=== PATIENT | male | born 1965 | race Caucasian/White ===

== ENCOUNTER 2022-09-10 13:01 | Inpatient (IN) | payer BC, SELFPAY ==
[2022-09-10] VITALS (8 sets, daily range): BP systolic 122–154; BP diastolic 75–92; PULSE 65–107; RESP 16–27; TEMP 36.7–36.8; O2SAT 98–100; BMI 25.4
--- NOTE | ~2022-09-10 | CT_ITS ---
CT of the Abdomen and Pelvis: Indication: Malignancy evaluation, cavitary lung disease Technique: 2.5 mm axial scans were obtained through the abdomen and pelvis following intravenous adm inistration of 100 cc of Omnipaque 350. Dose reduction technique was used on this scan by utilizing a utomated exposure control and iterative reconstruction technique. The dose-length product (DLP) was 6 81.60 mGy-cm. Findings: Scans through the lung bases there is a possible focal tree-in-bud opacities in the lingul a. The liver, spleen, pancreas, gallbladder, adrenals and kidneys are within normal limits. No evidence of aortic aneurysm. No lymphadenopathy. There are atherosclerotic calcifications of the aorta. No bowel obstruction or bowel wall thickening. There is no evidence to suggest acute appendicitis. Th ere is focal inflammatory change and small bubbles of gas in the subcutaneous soft tissues in the lef t groin region. Images through the pelvis were performed. Urinary bladder unremarkable. Prostate gland and seminal ve sicles are unremarkable. No ascites. Impression: No evidence for malignancy or metastatic disease. Possible focal tree-in-bud opacities in lingula, suggestive of small airways infectious process. Focal inflammatory change and soft tissue gas in the subcutaneous soft tissues, groin region. Correla te for recent procedure or injection, or possibly other trauma. Reviewed, dictated and finalized at location M. LSTERY AUTO TRIMMER Impression: No evidence for malignancy or metastatic disease. Possible focal tree-in-bud opacities in lingula, suggestive of small airways in fectious process. Focal inflammatory change and soft tissue gas in the subcutaneous soft tissues, groin region. Correlate for recent procedure or injection, or possibly other t rauma.
--- NOTE | ~2022-09-10 | XR_ITS ---
XR abdomen/kub 1V DATE: 09/12/2022 10:11 INDICATION: Check for barium prior to scheduled CT examination TECHNIQUE: Portable supine AP views COMPARISON: None FINDINGS: There is barium throughout the rectum and colon. Scattered diverticula of the sigmoid and d escending colon. No bowel obstruction is evident. Associated as are intact. No visceromegaly is detected. Degenerative changes of the thoracic and lumbar spine and particularly left hip. IMPRESSION: Barium within the rectum and colon Reviewed, dictated and finalized at Location A. Reviewed, dictated and finalized at location L. UTER APPLICATIONS ENGINEER
--- NOTE | ~2022-09-10 | XR_ITS ---
Clinical Indication: Cavitary pneumonia PA and lateral views of the chest: Comparison: 09/10/2022 Findings: Cavitary lesion with surrounding consolidation left upper lobe is similar to prior exam. Ri ght lung remains clear. Cardiomediastinal silhouette is within normal limits. Bones and soft tissues are unremarkable. Impression: Stable cavitary lesion with surrounding consolidation left upper lobe. Reviewed, dictated and finalized at [facility]. ING AND RESIDENCE LIFE DIRECTOR Impression: Stable cavitary lesion with surrounding consolidation left upper lobe.
--- NOTE | ~2022-09-10 | CT_ITS ---
EXAMINATION: CT diagnostic chest w con DATE: 09/10/2022 14:47 INDICATION: Necrotizing pneumonia with abscess formation TECHNIQUE: Transaxial computed tomographic images of the chest were obtained after the administration of 75 cc of Omnipaque 350 intravenous contrast. The dose-length product (DLP) was 315.10 mGy-cm. Ite rative reconstruction was used. COMPARISON: None FINDINGS: There are multiple thick-walled cavitary nodules throughout the lungs. There is a 6.1 x 4.9 cm thick-walled cavitary mass of the left upper lobe. There are multiple small ill-defined nodules w ithout cavitation throughout the lungs, predominantly in the left upper lobe. There is no pleural eff usion. The heart size is normal. The liver is diffusely low in attenuation when compared with the spl een, consistent with hepatic steatosis. There is mild thoracic spondylosis. IMPRESSION: 1. Findings consistent with multifocal pneumonia with multiple solid and cavitary nodules in the lung s as well as a thick-walled cavitary mass of the left upper lobe. Reviewed, dictated and finalized at location F. MS CONFIGURATION ANALYST IMPRESSION: 1. Findings consistent with multifocal pneumonia with multiple solid and cavita ry nodules in the lungs as well as a thick-walled cavitary mass of the left upp er lobe.
--- NOTE | ~2022-09-10 | XR_ITS ---
EXAM: XR foot LT min 3V DATE: 09/13/2022 17:33 HISTORY: trauma 4th metatarsal, pain . COMPARISON: None available. FINDINGS: Normal mineralization. No fracture or dislocation. No lytic or blastic lesion. Mild scatte red degenerative change. Os cuboidium. Os navicularis. Plantar enthesopathy. Prominent os trigonum. N o erosion or periosteal change. Soft tissues within normal limits. IMPRESSION: No acute osseous finding in the left foot. Reviewed, dictated and finalized at location K. RSION METAL CLEANER
--- NOTE | ~2022-09-10 | CT_ITS ---
CT Scan of the Chest without Contrast: Clinical Indication: Cavitary lung disease Technique: Contiguous sections were acquired throughout the chest without intravenous contrast. Dose reduction technique was used on this scan by utilizing automated exposure control and iterative recon struction technique. The dose-length product (DLP) was 260.28 mGy-cm. COMPARISON: 09/10/2022 Findings: There is no evidence of any significant mediastinal, hilar or axillary lymphadenopathy. The mediastin al soft tissues appear normal. There is no evidence of pleural or pericardial effusion. Thick-walled cavitary lesion in the left upper lobe is present, extending towards left hilum, measuri ng up to approximately 6.5 cm in diameter, essentially unchanged from prior exam. Patchy surrounding consolidation and small irregular nodule opacities in the left upper lobe are also essentially unchan ged from prior exam. There are several much smaller cavitary lesions in the left lower lobe, measurin g up to 1.1 cm in maximum diameter, again with small irregular tree-in-bud opacities other nodular op acities in this region. Right lung remains essentially clear. Images through the upper abdomen reveal no abnormalities. Impression: Overall, no significant change from recent prior exam. Stable dominant thick-walled, cavitary lesion in the left upper lobe, with numerous additional much smaller irregular nodules and cavitary lesions in the left upper lobe and left lower lobe, as detailed above. Findings suggest infectious process. N eoplastic/metastatic disease is not excluded. Reviewed, dictated and finalized at location . NESS INTELLIGENCE ENGINEER Impression: Overall, no significant change from recent prior exam. Stable dominant thick-wa lled, cavitary lesion in the left upper lobe, with numerous additional much sma ller irregular nodules and cavitary lesions in the left upper lobe and left low er lobe, as detailed above. Findings suggest infectious process. Neoplastic/met astatic disease is not excluded.
--- NOTE | ~2022-09-10 | XR_ITS ---
MODIFIED ESOPHAGRAM HISTORY: Cavitary pneumonia with complaints of liquid aspiration TECHNIQUE: Modified barium esophagram was performed on 09/11/2022. I administered fluoroscopy and perfo rmed the exam with speech pathologist. Patient was seated for lateral fluoroscopic imaging for inges tion of thin liquids, pudding, solids and quantified amounts, followed by thin liquids in uncontrolle d amounts. This was recorded on tape. A single fluoroscopic spot image was also recorded. The DAP for this procedure was 0.715 Gycm2. The amount of fluoroscopy time used during this procedure was 0.9 mi nutes. FINDINGS: Oral stage: Adequate function. Pharyngeal stage: Adequate function. Cervical/esophageal stage: Adequate function. IMPRESSION: Patient tolerated regular consistency oral feedings in the upright position. Please jude elate with speech pathologist findings and specific feeding recommendations. Reviewed, dictated and finalized at location A. GRATION SPECIALIST IMPRESSION: Patient tolerated regular consistency oral feedings in the upright position. Please correlate with speech pathologist findings and specific feedi ng recommendations.
--- NOTE | ~2022-09-10 | XR_ITS ---
EXAMINATION: XR abdomen/kub 1V DATE: 09/13/2022 08:18 INDICATION: Assess residual enteric barium prior to planned CT. TECHNIQUE: A supine view of the abdomen was obtained. COMPARISON: 09/12/2022 FINDINGS: There is been some decrease in the amount of barium in the proximal colon. There is still significant amount of barium in the distal transverse, descending and sigmoid colon. No dilated bowel to suggest obstruction. IMPRESSION: 1. Interval decrease in a still relatively significant amount of residual barium in the mid to distal colon. Reviewed, dictated and finalized at location A. LED LABORER IMPRESSION: 1. Interval decrease in a still relatively significant amount of residual bariu m in the mid to distal colon.
--- NOTE | ~2022-09-10 | XR_ITS ---
EXAMINATION: XR chest 2V DATE: 09/10/2022 13:57 INDICATION: Left chest pain. TECHNIQUE: Frontal and lateral views of the chest were obtained. COMPARISON: None. FINDINGS: There are airspace opacities in left upper lobe with central lucency, consistent with necro tizing pneumonia. No pleural effusion or pneumothorax. The heart size is normal. IMPRESSION: 1. Necrotizing pneumonia in left upper lobe. Follow-up radiographs are recommended to confirm resolut ion and exclude malignancy. Reviewed, dictated and finalized at location A. VIORAL THERAPY COORDINATOR IMPRESSION: 1. Necrotizing pneumonia in left upper lobe. Follow-up radiographs are recommen ded to confirm resolution and exclude malignancy.
--- NOTE | 2022-09-10 13:01 | ECG_ITS ---
Measurements Intervals [place] Rate: 87 P: 72 ND: 175 QRS: -19 QRSD: 112 T: 69 QT: 351 QTc: 423 Interpretive Statements SINUS RHYTHM POSSIBLE LEFT ATRIAL ENLARGEMENT INCOMPLETE RIGHT BUNDLE BRANCH BLOCK MINIMAL Q WAVES- HIGH LATERAL LEADS BORDERLINE ECG NO PREVIOUS ECG AVAILABLE FOR COMPARISON Electronically Signed On 09-10-2022 14:36:02 SURVEYOR MINE by Julian Hurley D.O.
--- NOTE | 2022-09-10 13:02 | ED.CHESTPAIN ---
HPI - Chest Pain General Chief Complaint: Chest Pain Stated Complaint: lateral left chest pain Time Seen by Provider: 09/10/22 13:02 Source: patient and EMS Mode of arrival: EMS Limitations: no limitations History of Present Illness HPI narrative: Patient is 57 years old white male presented to the ED by ambulance from home complaining of sudden onset of severe cramps at the left chest started while sitting relaxing. 10 out of 10, associated with dizziness and feeling like going to blackout. Worse with deep breathing and better with shallow breath. Patient received 4 tablets of aspirin prior to arrival. Currently 1 out of 10. The symptoms started roughly 1 hour ago. Patient reports history of intermittent cramps in the ribs, hands, legs for years, today the rib cramps lasted longer. currently on magnesium supplement. He denies any fever, chills, nausea, vomiting, shortness of breath or back pain. History of diabetes, hypertension, hyperlipidemia. Patient smokes marijuana, denies tobacco or alcohol use. Patient reported carrying a small box this morning 5-hour prior to the beginning of his symptoms. Related Data Allergies Allergy/AdvReac Type Severity Reaction Status Date / Time Sulfa (Sulfonamide Allergy Swelling Verified 09/10/22 13:03 Antibiotics) Review of Systems Review of Systems: All systems reviewed & are unremarkable except as noted in HPI and below Exam Narrative: General appearance: Well-developed, well-nourished Skin: Normal color Head: Normocephalic, nontraumatic Eyes: Clear conjunctiva ENT: Oropharynx normal, ears normal, nose normal Neck: Supple, nontender Chest and respiratory: Airway patent, no respiratory distress, no accessory muscle use, slight tenderness at the left chest mid axillary line, no bruises, no swelling or rash. Heart: Regular rate/rhythm Abdomen: Soft, nontender, no organomegaly, quiet bowel sounds Vascular: Normal peripheral pulses, normal capillary refill. Musculoskeletal: Normal range of motion, nontender back Neurologic: Alert and oriented ?3, TRANSFORMATION COACH is normal as tested, no gross motor deficit Course Consultations Consultation #1: DR VALENCIA, Was able to look at the EKG through text message and agreed that the patient does not have STEMI. Date: 09/10/22 Time: 13:29 Vital Signs Vital signs: Vital Signs Temperature 36.7 C 09/10/22 12:55 Pulse Rate 87 09/10/22 12:55 Respiratory Rate 16 09/10/22 12:55 Blood Pressure 154/84 H 09/10/22 12:55 Pulse Oximetry 100 09/10/22 12:55 Oxygen Delivery Room Air 09/10/22 12:55 Temperature 36.7 C 09/10/22 12:55 Pulse Rate 87 09/10/22 12:55 Respiratory Rate 16 09/10/22 12:55 Blood Pressure 154/84 H 09/10/22 12:55 Pulse Oximetry 100 09/10/22 12:55 Oxygen Delivery Room Air 09/10/22 12:55 Discharge Plan Discharge Follow-up/Referrals: Frank Camilo MD [Physician] - Quality HEART score for chest pain patients History: slightly suspicious ECG: non specific repolarization disturbance/LBTB/PM Age: > 45 and < 65 years Risk factors: > or = to 3 risk factors of atherosclerotic disease Troponin: < or = to 1x normal limit Heart score: 4
[2022-09-10] MEDS: KETOROLAC 30 MG/ML VIAL (*BKC) IV PUSH (13:41)
[2022-09-10 14:06] LABS: Basophils Percent Auto 0.1 % (0.2-1.2); Hematocrit 41.7 % (42.0-52.0); Hemoglobin 14.1 g/dL (14.0-18.0); Immature Granulocyte Absolute 0.04 K/mm3 (0.00-0.031); Immature Granulocyte Percent A 0.3 % (0-0.5); Lymphocytes Absolute Auto 1.66 K/mm3 (0.9-3.2); Lymphocytes Percent Auto 14.3 % (18.3-44.2); Mean Corpuscular HGB Conc 33.8 g/dl (32-36); Mean Corpuscular Hemoglobin 31.4 pg (26-34); Mean Corpuscular Volume 92.9 fl (80-100); Monocytes Absolute Auto 1.5 K/mm3 (0.1-0.6); Monocytes Percent Auto 12.9 % (2.6-8.5); Neutrophils Absolute Auto 8.4 K/mm3 (1.3-6.7); Neutrophils Percent Auto 72.4 % (45.5-73.1); Platelet Count Result 319 k/mm3 (150-375); Red Blood Count 4.49 M/mm3 (4.6-6.20); Red Cell Distribution Width 12.2 % (11.5-14.5); White Blood Count 11.6 K/mm3 (4.5-10.0)
[2022-09-10 14:17] LABS: Alanine Aminotransferase 21 U/L (6-50); Alkaline Phosphatase 89 U/L (38-126); Anion Gap 10 mmol/L (8-16); Aspartate Amino Transferase 25 U/L (17-59); Bilirubin,Total 0.5 mg/dL (0.2-1.3); Blood Urea Nitrogen 11 mg/dL (9-20); Calcium 8.9 mg/dL (8.4-10.2); Carbon Dioxide 24 mmol/L (22-30); Chloride 97 mmol/L (98-107); Estimated CRCL calculation 161 ml/min; Estimated Glomerular Filt Rate > 60; Glucose 357 mg/dL (65-110); INR 1.2; Lipase 25 U/L (23-300); Partial Thromboplastin Time 27.8 SECONDS (22.3-36.8); Potassium 4.2 mmol/L (3.4-5.0); Prothrombin Time 14.7 Seconds (11.1-14.7); Sodium 131 mmol/L (137-145)
--- NOTE | 2022-09-10 14:19 | ECG_ITS ---
Measurements Intervals [place] Rate: 87 P: 72 RI: 175 QRS: -19 QRSD: 112 T: 69 QT: 351 QTc: 423 Interpretive Statements SINUS RHYTHM POSSIBLE LEFT ATRIAL ENLARGEMENT INCOMPLETE RIGHT BUNDLE BRANCH BLOCK BORDERLINE ECG NO PREVIOUS ECG AVAILABLE FOR COMPARISON Electronically Signed On 09-11-2022 9:57:55 HALL CLERK by Julian Hurley D.O.
[2022-09-10 14:21] LABS: CRP 2.2 mg/dL (<1.0); Magnesium 1.9 mg/dL (1.6-2.3)
[2022-09-10 14:29] LABS: Troponin I < 0.012 ng/mL (0.000-0.034)
[2022-09-10 14:53] LABS: Erythrocyte Sedimentation Rate 49 mm/hr (0-20)
[2022-09-10 15:28] LABS: Lactic Acid Reflex 1.7 mmol/L (0.7-2.0)
[2022-09-10 15:55] LABS: SARS-CoV-2 RNA PCR Negative
--- NOTE | 2022-09-10 16:15 | PM.IMHP ---
H&P: HPI History of Present Illness Date/Time: 09/10/22 16:15 Chief Complaint: Left-sided chest pain. Narrative: This is a nice 57-year-old male with asthma, type 2 diabetes mellitus, and hypertension who presented the emergency department via EMS for evaluation of left-sided chest pain. He was at a local flea market today when he developed sudden onset of cramping pain in the left lateral chest associated with dizziness as though he was going to black out. The pain seems to be worse with deep breathing and cough. Prior to arrival he took 4 aspirin and he received Toradol in the ER which relieved his symptoms. Chest x-ray showed necrotizing on in the left upper lobe and a subsequent CT of the chest showed findings consistent with multifocal pneumonia with multiple solid and cavitary nodules and thick-walled cavitary mass of the left upper lobe measuring 6.1 x 4.9 cm. With further questioning he endorses a cough productive of thick green sputum, post tussive emesis, subjective fever, sweats, and loose stools. He had similar symptoms throughout June and July. He has lost about 20 lb in the last 6 months or so which he attributes to decreased appetite since his in March 2022. He has dysphagia with liquids and large pills and he thinks that he aspirates frequently but not in significant amounts. He has a broken molar in the right lower jaw without pain. He has frequent sinus congestion, rhinorrhea, and occasional postnasal drip. No known history of malignancy, tuberculosis exposure, or history of latent TB. He lives in a 50+ year old home which has seen mildew and mold though he reportedly removed all drywall containing mold several years ago. The house does on occasion have standing water as there is a water well on the property which is at a higher elevation than the home; the well as not in use and he is on city water. He has several cats in the home and some outdoors. Mice are an issue at times. No birds. Review of Systems Review of Systems: Twelve systems were reviewed. Occasional nose bleeds. Has not noticed lymphadenopathy. Appetite has been poor since his . He had some loose stools today. No exertional chest pain or shortness of breath. No palpitations or sensations of racing heart. He denies orthopnea, paroxysmal nocturnal dyspnea, and edema. Except as documented, all other systems were reviewed and are negative. [facility] Past Medical History Medical History (Updated 09/10/22 @ 16:40 by Nettie Christian PA-C) Asthma Hypertension Type 2 diabetes mellitus Surgical History Surgical History (Updated 09/10/22 @ 16:33 by Nettie Christian PA-C) History of removal of cyst History of tonsillectomy Family History Family History (Updated 09/10/22 @ 16:34 by Nettie Christian PA-C) Mother , in her early 60s. Colon cancer Father Emphysema lung Social History Social History (Updated 09/10/22 @ 16:36 by Nettie Christian PA-C) Social History: Patient lives in his own home in [place]. Several cats at home. as of March 2022. Lifelong nonsmoker. Smokes marijuana. No alcohol for more than 20 years, never drank heavily. He was previously in the [employer]. 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 No children. Surrogate medical decision maker: Juan Manuel Burton (stepson) or Crystal Ackerman (niece). Code status: Full code. Smoking status: Never smoker Second hand tobacco smoke exposure: Yes Alcohol intake: never Substance use: current Substance use type: marijuana and prescription drug Lack of Transportation: No Lack of Food: Never True Current Housing: I Have Housing Concerned About Future Housing: YES Difficulty Paying Gas/Electric Bills: No Difficulty Paying for Meds: No Currently Unemployed: YES Education: Bachelor's Degree Difficulty w/ Childcare or Family Care: No Spiritual care concerns: No Meds Home Medications and
[2022-09-10] MEDS: SODIUM CHLORIDE 0.9% IV 1,000 ML 999 ML IV CONT (16:23)
[2022-09-10] MEDS: SODIUM CHLORIDE 0.9% IV 1,000 ML 125 ML IV CONT (16:24)
[2022-09-10] MEDS: PIPERACILLIN/TAZOBACTAM SOD 4.5 GM in SODIUM CHLORIDE 0.9% IV 100 ML 200 ML IVPB (16:27)
[2022-09-10 16:30] LABS: Troponin I < 0.012 ng/mL (0.000-0.034)
--- NOTE | 2022-09-10 18:31 | PC.NURSE ---
This patient, Nicolás Shields, was admitted to Medical Room 347-. Patient/family oriented to hospital policies and general routines including ID bracelet, bed and alarms, visiting hours, pain management, procedures, bathroom and other care routines, personal items, smoking policy, room service/diet, and visiting hours. Information on how to activate the Rapid Response Team has been discussed. Patient/Family are encouraged to report perceived risks to care and to ask questions if they do not understand what they are told or what they should do.
--- NOTE | 2022-09-10 18:45 | PC.NURSE ---
Tubed two inhalers down to pharmacy for them to verify for patient use.
[2022-09-10 19:33] LABS: Troponin I < 0.012 ng/mL (0.000-0.034)
[2022-09-10 21:53] LABS: Glucose Point of Care 319 mg/dl (65-105)
[2022-09-11] VITALS (12 sets, daily range): BP systolic 109–127; BP diastolic 57–73; PULSE 55–91; RESP 18–22; TEMP 36.2–36.8; O2SAT 95–99
--- NOTE | 2022-09-11 | ECHO_ITS ---
Patient Info Name: Nicolás Shields Age: 57 years : 1965 Gender: Male Ht: 69 in Wt: 171 lbs BSA: 1.95 m2 HR: 94 bpm BP: 120 / 71 mmHg Heart Rhythm: Sinus Rhythm Technical Quality: Good Exam Date: 09/11/2022 11:54 AM Exam Location: [facility] Patient Status: Inpatient Admit Date: 09/10/2022 Staff Ordering Physician: Itz Schulte MD Dielectric Press Operator: Eva Doyle RDCS Attending Provider: Heena Valdovinos MD Exam Type: CA echo doppler color flow Study Info Indications I30.8 - Other forms of acute pericarditis I31.3 - Pericardial effusion (noninflammatory) Complete two-dimensional, color flow and Doppler transthoracic echocardiogram is performed. Summary 1. Complete two-dimensional, color flow and Doppler transthoracic echocardiogram is performed. 2. Left ventricular chamber dimension is normal. 3. Left ventricular systolic function is normal, estimated at 60-65%. 4. The left ventricular diastolic function is grade I diastolic dysfunction. 5. Right ventricular systolic function is normal. 6. There is mild aortic valve calcification. 7. There is trace mitral valve regurgitation. 8. There is trace tricuspid valve regurgitation. 9. There is no pericardial effusion. Left Ventricle Left ventricular chamber dimension is normal. Left ventricular systolic function is normal, estimated at 60-65%. There is no increased left ventricular wall thickness. The left ventricular diastolic function is grade I diastolic dysfunction. Global longitudinal strain is abnormal at -17 %. Right Ventricle Right ventricular chamber dimension is normal. Right ventricular systolic function is normal. Left Atria Left atrial chamber dimension is normal. Right Atria Right atrial chamber dimension is normal. Atrial Septum Intact interatrial septum visualized by color flow imaging. Aortic Valve The aortic valve is trileaflet. There is no aortic valve stenosis. There is no aortic valve regurgitation. There is mild aortic valve calcification. Pulmonic Valve The pulmonic valve is not well visualized. Mitral Valve The mitral valve has normal leaflets. There is no mitral valve stenosis. There is trace mitral valve regurgitation. Tricuspid Valve The tricuspid valve leaflets are normal. There is trace tricuspid valve regurgitation. Pericardium/Pleural There is no pericardial effusion. Aorta The aortic root size at the sinus of Valsalva is normal. Left Ventricular Outflow Tract Name Value Normal LVOT 2D LVOT Diameter 2.0 cm LVOT Doppler LVOT Peak Velocity 138 cm/s LVOT Peak Gradient 8 mmHg LVOT Mean Gradient 4 mmHg LVOT VTI 29 cm LVOT VTI/AV VTI Ratio 1.0 LVOT Stroke Volume 93 ml LVOT CO 7.9 l/min LVOT CI 4.0 l/min/m2 Pulmonic Valve Name Value
[2022-09-11] MEDS: PIPERACILLIN/TAZOBACTAM SOD 4.5 GM in SODIUM CHLORIDE 0.9% IV 100 ML 200 ML IVPB ×4 (00:34→17:31)
[2022-09-11] MEDS: SODIUM CHLORIDE 0.9% IV 1,000 ML 125 ML IV CONT ×2 (04:02→19:27)
[2022-09-11] MEDS: traMADol HCL (*CRX) 50 MG TABLET PO ×3 (04:57→19:25)
[2022-09-11 05:47] LABS: Hemoglobin 13.7 g/dL (14.0-18.0); Mean Corpuscular HGB Conc 34.3 g/dl (32-36); Mean Corpuscular Hemoglobin 31.4 pg (26-34); Mean Corpuscular Volume 91.5 fl (80-100); Mean Platelet Volume 9.7 fl (7.4-10.4); Platelet Count Result 305 k/mm3 (150-375); Red Blood Count 4.37 M/mm3 (4.6-6.20); Red Cell Distribution Width 12.1 % (11.5-14.5); White Blood Count 9.6 K/mm3 (4.5-10.0)
[2022-09-11 06:01] LABS: Alanine Aminotransferase 19 U/L (6-50); Albumin Level 3.6 g/dL (3.5-5.1); Alkaline Phosphatase 86 U/L (38-126); Anion Gap 7 mmol/L (8-16); Aspartate Amino Transferase 23 U/L (17-59); Bilirubin,Total 0.5 mg/dL (0.2-1.3); Blood Urea Nitrogen 6 mg/dL (9-20); CRP 1.8 mg/dL (<1.0); Calcium 8.5 mg/dL (8.4-10.2); Carbon Dioxide 25 mmol/L (22-30); Chloride 103 mmol/L (98-107); Estimated CRCL calculation 161 ml/min; Estimated Glomerular Filt Rate > 60; Glucose 264 mg/dL (65-110); Magnesium 1.8 mg/dL (1.6-2.3); Sodium 135 mmol/L (137-145)
[2022-09-11] MEDS: FLUTICASONE/SALMETEROL 230-21 MCG INHALER 1 PUFF 2 PUFF INHALATION ×2 (07:10→20:19)
[2022-09-11 08:06] LABS: Procalcitonin 0.1 ng/mL
[2022-09-11 08:30] LABS: Glucose Point of Care 276 mg/dl (65-105)
[2022-09-11] MEDS: ENOXAPARIN 40 MG/0.4 ML SYRINGE SUB-Q (09:14)
[2022-09-11] MEDS: INSULIN ASPART (*BKC) 100 UNITS/ML SUB-Q ×3 (09:14→17:31)
[2022-09-11] MEDS: lisinopriL 10 MG TABLET PO (09:15)
[2022-09-11] MEDS: MONTELUKAST SODIUM 10 MG TABLET PO (09:15)
[2022-09-11] MEDS: ASPIRIN 81 MG CHEWABLE TABLET PO (09:31)
--- NOTE | 2022-09-11 11:25 | PM.CNPUL ---
Assessment and Plan Assessment and plan (1) Cavitary pneumonia: Code(s): J18.9 - Pneumonia, unspecified organism; J98.4 - Other disorders of lung Status: Acute Assessment and Plan: Patient with a history of asthma on facet center a injection every 8 weeks with a last injection on 08/22/2022. Patient presents with infectious complaint since June 2020 2 with chills, aches, cough, phlegm production and now left-sided pleuritic pain with a CT scan that shows right upper lobe, left upper lobe x2 and a lingular nodular infiltrate. Patient was started on vancomycin, Zosyn and Levaquin on 09/10. 09/11 Currently the patient tells me that he is improved. His phlegm is now resolved, his aches are resolved, the left-sided pleuritic chest pain is 7 of 10. He denies any sore joints or rashes. His white blood cell count is 9.6. He is on room air with saturations 98%. I will send HIV test, QuantiFERON gold, sputum for AFB and fungus and await blood and sputum cultures. Legionella urine, pneumococcal urine and mycoplasma IgM studies are pending. I will order urine histoplasma antigen. Echocardiogram to assess valvular structures for possible endocarditis. CT abdomen and pelvis with contrast looking for malignancy. patient complained of aspiration on liquids at times and I will order speech therapy consult for modified barium swallow. Will follow with you (2) Asthma: Code(s): J45.909 - Unspecified asthma, uncomplicated Status: Acute Assessment and Plan: There is no evidence of an asthma exacerbation currently. I will continue his step 5 home therapy of high-dose inhaled corticosteroid with Advair HFA 230-21 at 2 puffs b.i.d., I will continues montelukast. History of Present Illness History of Present Illness Consult date: 09/11/22 Chief complaint: Multifocal Pneumonia/Cavitary Mass Narrative: 57-year-old with a history of diabetes, hypertension and asthma since age 1. Patient was previously on Xolair and switched to fesenra (anti IL-5receptor) approximately 3 years ago. Patient's last injection was on 08/22/2019 through through doctor Andrea. He receives injections every 8 weeks. Patient tells me that right after Thanksgiving he developed cough, phlegm production, chills and body aches. these symptoms worsened in June and July of 2022. Symptoms got somewhat better in the beginning of August after he started taking vitamin-C. Later in the month in August the cough, and phlegm got worse. He did not have aches or chills at this time. Patient has never had any hemoptysis. On 09/04/2022 the patient had chills and aches return along with a production of green phlegm. On 09/08 the patient developed chills and aches along with the phlegm production and on 09/10 he developed left-sided pleuritic chest pain Graded as 10 of 10 and dizziness. EMS was called and he was brought to the emergency department. He was afebrile, his saturations were 100% on room air. His white blood cell count was 11.6 was 0% eosinophils, his creatinine was 0.4, as troponins were negative x3, CRP was 2.2, his cope bid test was negative, chest x-ray showed left mid field cavity and a CT scan showed left upper lobe, right upper lobe and a larger left upper lobe cavitary mass with lingular nodular infiltrate. Patient had no wheezing and no evidence of an asthma exacerbation. Patient was started on vancomycin, Zosyn and Levaquin. At baseline patient states his asthma is well controlled he has no respiratory limitations in his activity of daily living from asthma. He states he could walk miles if needed to. His last exacerbation requiring prednisone was greater than 2 years ago. Patient is a never smoker. Patient was exposed to secondhand smoke from both of his parents but none since. Patient smokes 1 marijuana cigarette a day but has cutting back recently. Patient denies other illicit drug use, vaping, sandb
[2022-09-11 12:27] LABS: Hemoglobin A1C 11.5 % (<5.7)
[2022-09-11 12:29] LABS: Glucose Point of Care 331 mg/dl (65-105)
[2022-09-11 12:47] LABS: HIV 1/2 Ab P24 Ag Result Negative (Negative)
--- NOTE | 2022-09-11 13:29 | PCSTNOTE ---
Please refer to the Bedside Swallow Evaluation in the EMR. Please note, silent aspiration cannot be ruled out at bedside.
--- NOTE | 2022-09-11 14:40 | PM.IMPN ---
Progress Note: A&P Assessment and Plan (1) Multifocal pneumonia: Code(s): J18.9 - Pneumonia, unspecified organism Status: Acute Assessment and Plan: Patient presents to the ED on 09/10/2022 with lateral chest pain. Chest x-ray showed necrotizing on in the left upper lobe CT of the chest showed findings consistent with multifocal pneumonia with multiple solid and cavitary nodules and thick-walled cavitary mass of the left upper lobe measuring 6.1 x 4.9 cm.? Started on broad-spectrum antibiotics (levofloxacin, vancomycin, and piperacillin/tazobactam). Sputum culture ordered Urinary antigens ordered. Dr. Gomez, pulmonology, has been consulted and appreciate his recommendations. 09/11/22 CT abd/pelvis ordered looking for malignancy Echo ordered to rule out pericarditis, pericardial effusion and endocarditis. GFT gold and HIV ordered (2) Dysphagia: Code(s): R13.10 - Dysphagia, unspecified Status: Acute Assessment and Plan: Patient passed MBS and okay on regular diet. (3) Type 2 diabetes mellitus: Code(s): E11.9 - Type 2 diabetes mellitus without complications Status: Acute Assessment and Plan: Initiate sliding scale insulin, Accu-Cheks, and hypoglycemic protocol. Hemoglobin A1c 11.5 Patient started on Lantus 30 mg HS due to weight recommended dosing. (4) Hypertension: Code(s): I10 - Essential (primary) hypertension Status: Acute Assessment and Plan: Blood pressures were reviewed and they have been reasonable in the 140s systolic. Continue antihypertensives and monitor closely. (5) Asthma: Code(s): J45.909 - Unspecified asthma, uncomplicated Status: Acute Assessment and Plan: No evidence of acute asthma exacerbation. Continue maintenance inhalers. Subjective Date/time seen: 09/11/22 14:40 Interval history: Patient doing well today. Patient states that he has had cough and shortness of breath since June 2022 and yesterday he had developed sharp pains in the left lateral chest causing him to almost faint. Patient states that the pain has improved since he arrived to the hospital but is not completely gone away. He denies dizziness, nausea, vomiting, hemoptysis. patient states that he has had a 20-25 lb weight loss since his has passed in the fall as well as a productive cough. Review of Systems Review of Systems: All systems reviewed & are unremarkable except as noted in HPI and below Exam Narrative: GENERAL: Comfortable, no acute distress HENMT: moist mucous membranes EYES: EOM intact b/l NECK: no lymphadenopathy RESPIRATORY: clear to auscultation CARDIO: RRR GI: soft, nontender, bowel sounds present SKIN: no rashes EXTREMITIES: no edema, redness or tenderness Objective Data Vital Signs Vital Signs: Vital Signs - 24 hr 09/10/22 16:24 09/10/22 17:02 09/10/22 20:00 Temperature Pulse Rate 107 H 91 Respiratory Rate 27 H Blood Pressure 149/92 H Pulse Oximetry 100 98 Oxygen Delivery Room Air 09/10/22 20:00 09/10/22 22:00 09/10/22 23:59 Temperature 98.2 F 98.2 F 98.2 F Pulse Rate 94 65 98 Respiratory Rate 22 H 22 H 22 H Blood Pressure 122/75 122/78 126/76 Pulse Oximetry 99 99 98 Oxygen Delivery 09/11/22 00:00 09/10/22 20:26 09/11/22 04:00 Temperature Pulse Rate 84 80 Respiratory Rate Blood Pressure Pulse Oximetry 99 Oxygen Delivery Room Air 09/11/22 04:00 09/11/22 06:00 09/11/22 07:10 Temperature 98.2 F 98.2 F Pulse Rate 88 90 85 Respiratory Rate 20 22 H 18 Blood Pressure 127/68 120/71 Pulse Oximetry 99 99 98 Oxygen Delivery Room Air 09/11/22 07:10 09/11/22 09:41 09/11/22 14:00 Temperature 98.3 F Pulse Rate 85 55 L Respiratory Rate 18 18 Blood Pressure 109/57 L Pulse Oximetry 95 Oxygen Delivery Room Air Intake/Output Intake/Output: Intake & Output 09/08/22 09/09/22 09/10/22 09/11/22 2
[2022-09-11 17:00] LABS: Glucose Point of Care 276 mg/dl (65-105)
[2022-09-11 20:47] LABS: Glucose Point of Care 316 mg/dl (65-105)
[2022-09-11] MEDS: INSULIN GLARGINE (*BKC) 100 UNITS/ML 30 UNITS SUB-Q (20:54)
[2022-09-12] VITALS (11 sets, daily range): BP systolic 133–146; BP diastolic 71–76; PULSE 78–108; RESP 16–18; TEMP 36.2–36.9; O2SAT 95–100
[2022-09-12] MEDS: PIPERACILLIN/TAZOBACTAM SOD 4.5 GM in SODIUM CHLORIDE 0.9% IV 100 ML 200 ML IVPB ×4 (00:02→23:34)
[2022-09-12 07:22] LABS: Basophils Percent Auto 0.1 % (0.2-1.2); Hematocrit 37.8 % (42.0-52.0); Hemoglobin 12.8 g/dL (14.0-18.0); Immature Granulocyte Absolute 0.03 K/mm3 (0.00-0.031); Immature Granulocyte Percent A 0.3 % (0-0.5); Lymphocytes Absolute Auto 1.69 K/mm3 (0.9-3.2); Lymphocytes Percent Auto 18.2 % (18.3-44.2); Mean Corpuscular HGB Conc 33.9 g/dl (32-36); Mean Corpuscular Hemoglobin 31.8 pg (26-34); Mean Corpuscular Volume 93.8 fl (80-100); Mean Platelet Volume 9.6 fl (7.4-10.4); Monocytes Absolute Auto 1.4 K/mm3 (0.1-0.6); Neutrophils Absolute Auto 6.2 K/mm3 (1.3-6.7); Neutrophils Percent Auto 66.4 % (45.5-73.1); Platelet Count Result 273 k/mm3 (150-375); Red Blood Count 4.03 M/mm3 (4.6-6.20); Red Cell Distribution Width 12.3 % (11.5-14.5); White Blood Count 9.3 K/mm3 (4.5-10.0)
[2022-09-12] MEDS: SODIUM CHLORIDE 0.9% IV 1,000 ML 125 ML IV CONT ×2 (07:28→17:33)
[2022-09-12 07:35] LABS: Alanine Aminotransferase 17 U/L (6-50); Albumin Level 3.3 g/dL (3.5-5.1); Alkaline Phosphatase 70 U/L (38-126); Anion Gap 4 mmol/L (8-16); Aspartate Amino Transferase 19 U/L (17-59); Bilirubin,Total 0.6 mg/dL (0.2-1.3); Blood Urea Nitrogen 5 mg/dL (9-20); CRP 3.3 mg/dL (<1.0); Calcium 8.3 mg/dL (8.4-10.2); Carbon Dioxide 27 mmol/L (22-30); Chloride 103 mmol/L (98-107); Estimated CRCL calculation 160 ml/min; Estimated Glomerular Filt Rate > 60; Glucose 221 mg/dL (65-110); Lactate Dehydrogenase 106 U/L (120-246); Magnesium 1.8 mg/dL (1.6-2.3); Potassium 3.7 mmol/L (3.4-5.0); Sodium 134 mmol/L (137-145)
[2022-09-12 07:40] LABS: Vancomycin Trough 7.4 ug/mL (10.0-20.0)
[2022-09-12] MEDS: FLUTICASONE/SALMETEROL 230-21 MCG INHALER 1 PUFF 2 PUFF INHALATION ×2 (08:10→20:45)
--- NOTE | 2022-09-12 08:11 | PM.PNPUL ---
Progress Note: A&P Assessment and Plan (1) Cavitary pneumonia: Code(s): J18.9 - Pneumonia, unspecified organism; J98.4 - Other disorders of lung Status: Acute Assessment and Plan: Patient with a history of asthma on facet center a injection every 8 weeks with a last injection on 08/22/2022. Patient presents with infectious complaint since June 2020 2 with chills, aches, cough, phlegm production and now left-sided pleuritic pain with a CT scan that shows right upper lobe, left upper lobe x2 and a lingular nodular infiltrate. Patient was started on vancomycin, Zosyn and Levaquin on 09/10. 09/11 Currently the patient tells me that he is improved. His phlegm is now resolved, his aches are resolved, the left-sided pleuritic chest pain is 7 of 10. He denies any sore joints or rashes. His white blood cell count is 9.6. He is on room air with saturations 98%. I will send HIV test, QuantiFERON gold, sputum for AFB and fungus and await blood and sputum cultures. Legionella urine, pneumococcal urine, histo Ag urine, and mycoplasma IgM studies are pending. I will order urine histoplasma antigen. Echocardiogram to assess valvular structures for possible endocarditis. CT abdomen and pelvis with contrast looking for malignancy. patient complained of aspiration on liquids at times and I will order speech therapy consult for modified barium swallow. 09/12 Patient continues to improve. He slept well last night. His left-sided pleuritic chest pain is much improved with 0.5 of 10 at baseline and 2 to 4/10 when he coughs. He has less mucus production and improved color with only 1 brown junk this morning. Room air saturations 96%. White blood cell count 9.3, creatinine 0.4. no evidence of aspiration on his modified barium swallow. HIV test negative. Echocardiogram with EF 60-65%, grade 1 diastolic dysfunction trace mitral regurg and tricuspid regurg with RSVP of 21 and no evidence of vegetations. Plan: Continue vancomycin, Zosyn and Levaquin, day 2. Cultures remain negative. Will follow with you (2) Asthma: Code(s): J45.909 - Unspecified asthma, uncomplicated Status: Acute Assessment and Plan: 09/11: There is no evidence of an asthma exacerbation currently. I will continue his step 5 home therapy of high-dose inhaled corticosteroid with Advair HFA 230-21 at 2 puffs b.i.d., I will continues montelukast. 09/12 No wheezes, continue Advair HFA 230-21 at 2 puffs b.i.d. and montelukast. Subjective Date/time seen: 09/12/22 08:11 Interval history: 57-year-old with a history of diabetes, hypertension and asthma since age 1.? Patient was previously on Xolair and switched to fesenra (anti IL-5receptor)? approximately 3 years ago.? Patient's last injection was on 08/22/2019 through through doctor Andrea.? He receives injections every 8 weeks. ? Patient tells me that right after Thanksgi he developed cough, phlegm production, chills and body aches. ? these symptoms worsened in June and July of 2022.? Symptoms got somewhat better in the beginning of August after he started taking vitamin-C. ? Later in the month in August the cough, and phlegm got worse.? He did not have aches or chills at this time.? ? Patient has never had any hemoptysis. On 09/04/2022 the patient had chills and aches return along with a production of green phlegm.? On 09/08 the patient developed chills and aches along with the phlegm production and on 09/10 he developed left-sided pleuritic chest pain ? Graded as 10 of 10 and dizziness. ? EMS was called and he was brought to the emergency department.? He was afebrile, his saturations were 100% on room air.? His white blood cell count was 11.6 was 0% eosinophils, his creatinine was 0.4, as troponins were negative x3, CRP was 2.2, his cope bid test was negative, chest x-ray showed left mid field cavity and a CT scan showed left upper lobe, right upper lobe and a larger left upper lobe
[2022-09-12 08:41] LABS: Glucose Point of Care 237 mg/dl (65-105)
[2022-09-12] MEDS: ASPIRIN 81 MG CHEWABLE TABLET PO (09:27)
[2022-09-12] MEDS: INSULIN ASPART (*BKC) 100 UNITS/ML SUB-Q ×2 (09:27→12:37)
[2022-09-12] MEDS: ENOXAPARIN 40 MG/0.4 ML SYRINGE SUB-Q (09:27)
[2022-09-12] MEDS: MONTELUKAST SODIUM 10 MG TABLET PO (09:30)
[2022-09-12] MEDS: lisinopriL 10 MG TABLET PO (09:30)
[2022-09-12 12:28] LABS: Glucose Point of Care 250 mg/dl (65-105)
--- NOTE | 2022-09-12 15:33 | PM.IMPN ---
Progress Note: A&P Assessment and Plan (1) Multifocal pneumonia: Code(s): J18.9 - Pneumonia, unspecified organism Status: Acute Assessment and Plan: Patient presents to the ED on 09/10/2022 with lateral chest pain. Chest x-ray showed necrotizing on in the left upper lobe CT of the chest showed findings consistent with multifocal pneumonia with multiple solid and cavitary nodules and thick-walled cavitary mass of the left upper lobe measuring 6.1 x 4.9 cm.? Started on broad-spectrum antibiotics (levofloxacin, vancomycin, and piperacillin/tazobactam). Sputum culture ordered Urinary antigens ordered. Dr. Gomez, pulmonology, has been consulted and appreciate his recommendations. 09/11/22 CT abd/pelvis ordered looking for malignancy Echo ordered to rule out pericarditis, pericardial effusion and endocarditis. QFT gold ordered HIV negative Procalcitonin 0.1 Elevated CRP at 3.3 09/12/[address] Gomez today and he would like patient to continue IV antibiotics and have repeat CXR done on Sunday. Continue antibiotic therapy. Patients symptoms improved today. Sputum cultures no growth to date (2) Dysphagia: Code(s): R13.10 - Dysphagia, unspecified Status: Acute Assessment and Plan: Patient passed MBS and okay on regular diet. (3) Type 2 diabetes mellitus: Code(s): E11.9 - Type 2 diabetes mellitus without complications Status: Acute Assessment and Plan: Patient was not on diabetic medication prior to hospital admission, and was found to have of blood sugar in the 300s Initiate sliding scale insulin, Accu-Cheks, and hypoglycemic protocol. Hemoglobin A1c 11.5 Patient started on Lantus 30 mg HS due to weight recommended dosing. (4) Hypertension: Code(s): I10 - Essential (primary) hypertension Status: Acute Assessment and Plan: Blood pressures were reviewed and they have been reasonable in the 140s systolic. Continue antihypertensives and monitor closely. (5) Asthma: Code(s): J45.909 - Unspecified asthma, uncomplicated Status: Acute Assessment and Plan: No evidence of acute asthma exacerbation. Continue maintenance inhalers. Subjective Date/time seen: 09/12/22 15:33 Interval history: Patient's left lateral chest pain is improving as well as his cough. He has no new complaints at this time. Review of Systems Review of Systems: All systems reviewed & are unremarkable except as noted in HPI and below Exam Narrative: GENERAL: Comfortable, no acute distress HENMT: moist mucous membranes EYES: EOM intact b/l NECK: no lymphadenopathy RESPIRATORY: clear to auscultation CARDIO: RRR GI: soft, nontender, bowel sounds present SKIN: no rashes EXTREMITIES: no edema, redness or tenderness Objective Data Vital Signs Vital Signs: Vital Signs - 24 hr 09/11/22 16:00 09/11/22 19:37 09/11/22 20:26 Temperature Pulse Rate 87 87 Respiratory Rate 18 Blood Pressure Pulse Oximetry 95 96 Oxygen Delivery Room Air Room Air 09/11/22 20:00 09/11/22 21:32 09/12/22 00:00 Temperature 97.2 F L Pulse Rate 91 83 81 Respiratory Rate Blood Pressure 122/73 Pulse Oximetry 97 Oxygen Delivery 09/12/22 04:00 09/12/22 06:00 09/12/22 08:10 Temperature 98.1 F Pulse Rate 78 80 81 Respiratory Rate 18 18 Blood Pressure 133/76 Pulse Oximetry 96 95 Oxygen Delivery Room Air 09/12/22 08:10 09/12/22 09:27 09/12/22 09:27 Temperature Pulse Rate 81 78 Respiratory Rate 18 Blood Pressure Pulse Oximetry Oxygen Delivery Room Air 09/12/22 12:00 09/12/22 14:00 Temperature 97.2 F L Pulse Rate 89 94 Respiratory Rate 16 Blood Pressure 146/71 H Pulse Oximetry 100 Oxygen Delivery Intake/Output Intake/Output: Intake & Output 09/09/22 09/10/22 09/11/22 09/12/22 23:59 23:59 23:59 23:59 Intake Total 6249 6850 6303 Gema
[2022-09-12 16:45] LABS: Glucose Point of Care 196 mg/dl (65-105)
[2022-09-12] MEDS: INSULIN GLARGINE (*BKC) 100 UNITS/ML 30 UNITS SUB-Q (21:06)
[2022-09-12 21:08] LABS: Glucose Point of Care 278 mg/dl (65-105)
[2022-09-13] VITALS (10 sets, daily range): BP systolic 115–121; BP diastolic 75–89; PULSE 76–101; RESP 16–18; TEMP 36.4–36.8; O2SAT 97–99
[2022-09-13] MEDS: traMADol HCL (*CRX) 50 MG TABLET PO (00:08)
[2022-09-13] MEDS: PIPERACILLIN/TAZOBACTAM SOD 4.5 GM in SODIUM CHLORIDE 0.9% IV 100 ML 200 ML IVPB ×4 (00:15→20:36)
[2022-09-13 08:16] LABS: Alanine Aminotransferase 19 U/L (6-50); Albumin Level 3.5 g/dL (3.5-5.1); Alkaline Phosphatase 72 U/L (38-126); Anion Gap 3 mmol/L (8-16); Aspartate Amino Transferase 25 U/L (17-59); Bilirubin,Total 0.5 mg/dL (0.2-1.3); Blood Urea Nitrogen 5 mg/dL (9-20); Calcium 8.7 mg/dL (8.4-10.2); Carbon Dioxide 29 mmol/L (22-30); Chloride 100 mmol/L (98-107); Estimated CRCL calculation 133 ml/min; Estimated Glomerular Filt Rate > 60; Glucose 219 mg/dL (65-110); Potassium 4.1 mmol/L (3.4-5.0); Sodium 132 mmol/L (137-145)
[2022-09-13 08:36] LABS: Glucose Point of Care 222 mg/dl (65-105)
[2022-09-13] MEDS: FLUTICASONE/SALMETEROL 230-21 MCG INHALER 1 PUFF 2 PUFF INHALATION ×2 (09:14→19:49)
[2022-09-13 09:15] LABS: Hematocrit 38.4 % (42.0-52.0); Hemoglobin 12.8 g/dL (14.0-18.0); Immature Granulocyte Absolute 0.03 K/mm3 (0.00-0.031); Immature Granulocyte Percent A 0.3 % (0-0.5); Lymphocytes Absolute Auto 1.88 K/mm3 (0.9-3.2); Lymphocytes Percent Auto 20.7 % (18.3-44.2); Mean Corpuscular HGB Conc 33.3 g/dl (32-36); Mean Corpuscular Hemoglobin 31.7 pg (26-34); Mean Platelet Volume 10.3 fl (7.4-10.4); Monocytes Absolute Auto 1.4 K/mm3 (0.1-0.6); Neutrophils Absolute Auto 5.8 K/mm3 (1.3-6.7); Platelet Count Result 299 k/mm3 (150-375); Red Blood Count 4.04 M/mm3 (4.6-6.20); Red Cell Distribution Width 12.3 % (11.5-14.5); White Blood Count 9.1 K/mm3 (4.5-10.0)
[2022-09-13] MEDS: INSULIN ASPART (*BKC) 100 UNITS/ML SUB-Q ×2 (09:25→13:05)
[2022-09-13] MEDS: lisinopriL 10 MG TABLET PO (09:26)
[2022-09-13] MEDS: ENOXAPARIN 40 MG/0.4 ML SYRINGE SUB-Q (09:26)
[2022-09-13] MEDS: ASPIRIN 81 MG CHEWABLE TABLET PO (09:26)
[2022-09-13] MEDS: MONTELUKAST SODIUM 10 MG TABLET PO (09:26)
--- NOTE | 2022-09-13 10:02 | PM.PNPUL ---
Progress Note: A&P Assessment and Plan (1) Cavitary pneumonia: Code(s): J18.9 - Pneumonia, unspecified organism; J98.4 - Other disorders of lung Status: Acute Assessment and Plan: Patient with a history of asthma on facet center a injection every 8 weeks with a last injection on 08/22/2022. Patient presents with infectious complaint since June 2020 2 with chills, aches, cough, phlegm production and now left-sided pleuritic pain with a CT scan that shows right upper lobe, left upper lobe x2 and a lingular nodular infiltrate. Patient was started on vancomycin, Zosyn and Levaquin on 09/10. 09/11 Currently the patient tells me that he is improved. His phlegm is now resolved, his aches are resolved, the left-sided pleuritic chest pain is 7 of 10. He denies any sore joints or rashes. His white blood cell count is 9.6. He is on room air with saturations 98%. Plan: I will send HIV test, QuantiFERON gold, sputum for AFB and fungus and await blood and sputum cultures. Legionella urine, pneumococcal urine, histo Ag urine, and mycoplasma IgM studies are pending. I will order urine histoplasma antigen. Echocardiogram to assess valvular structures for possible endocarditis. CT abdomen and pelvis with contrast looking for malignancy. patient complained of aspiration on liquids at times and I will order speech therapy consult for modified barium swallow. 09/12 Patient continues to improve. He slept well last night. His left-sided pleuritic chest pain is much improved with 0.5 of 10 at baseline and 2 to 4/10 when he coughs. He has less mucus production and improved color with only 1 brown junk this morning. Room air saturations 96%. White blood cell count 9.3, creatinine 0.4. No evidence of aspiration on his modified barium swallow. HIV test negative. Echocardiogram with EF 60-65%, grade 1 diastolic dysfunction trace mitral regurg and tricuspid regurg with RSVP of 21 and no evidence of vegetations. Plan: Continue vancomycin, Zosyn and Levaquin, day 2. Cultures remain negative. 09/13 Patient continues to improve. He walked in the halls yesterday. His left-sided pleuritic pain is 0.5/10 at rest and 1-2 with deep breathing and coughing. His phlegm is turn from brown to deleon and with a decreased volume. His room air saturations are 98%. White blood cell count is 9.1, creatinine is 0.5. Cultures negative, MRSA nasal swab negative. Plan: Continue vancomycin, Zosyn and Levaquin, day 3. I will check a PA and lateral chest x-ray on 09/14/2022 Will follow with you (2) Asthma: Code(s): J45.909 - Unspecified asthma, uncomplicated Status: Acute Assessment and Plan: 09/11: There is no evidence of an asthma exacerbation currently. I will continue his step 5 home therapy of high-dose inhaled corticosteroid with Advair HFA 230-21 at 2 puffs b.i.d., I will continues montelukast. 09/12 No wheezes, continue Advair HFA 230-21 at 2 puffs b.i.d. and montelukast. 09/13 no wheezes, continue Advair HFA 230-21 at 2 puffs b.i.d. and montelukast. Subjective Date/time seen: 09/13/22 10:02 Interval history: 09/11/22 this is a new pulmonary consult for cavitary pneumonia. 57-year-old with a history of diabetes, hypertension and asthma since age 1.? Patient was previously on Xolair and switched to fesenra (anti IL-5receptor)? approximately 3 years ago.? Patient's last injection was on 08/22/2019 through through doctor Andrea.? He receives injections every 8 weeks. ? Patient tells me that right after Thanksgi he developed cough, phlegm production, chills and body aches. ? these symptoms worsened in June and July of 2022.? Symptoms got somewhat better in the beginning of August after he started taking vitamin-C. ? Later in the month in August the cough, and phlegm got worse.? He did not have aches or chills at this time.? ? Patient has never had any hemoptysis. On 09/04/2022 the patient had chills and a
[2022-09-13 12:13] LABS: Glucose Point of Care 314 mg/dl (65-105)
--- NOTE | 2022-09-13 15:47 | PM.IMPN ---
Progress Note: A&P Assessment and Plan (1) Multifocal pneumonia: Code(s): J18.9 - Pneumonia, unspecified organism Status: Acute Assessment and Plan: Patient presents to the ED on 09/10/2022 with lateral chest pain. Chest x-ray showed necrotizing on in the left upper lobe CT of the chest showed findings consistent with multifocal pneumonia with multiple solid and cavitary nodules and thick-walled cavitary mass of the left upper lobe measuring 6.1 x 4.9 cm.? Started on broad-spectrum antibiotics (levofloxacin, vancomycin, and piperacillin/tazobactam), first dose 09/11/22. Sputum culture mixed alban Urinary antigens pending Dr. Gomez, pulmonology, has been consulted and appreciate his recommendations. Echo without evidence of pericarditis, pericardial effusion and endocarditis. QFT gold pending. AFB sputum pending HIV negative Procalcitonin 0.1 Elevated CRP at 3.3 on admission Plan to check CT abd/pelvis rule out malignancy (waiting for barium clearing) and PA/LAT chest xray on 09/14/22 (2) Cavitary pneumonia: Code(s): J18.9 - Pneumonia, unspecified organism; J98.4 - Other disorders of lung Status: Acute Assessment and Plan: As above. (3) Dysphagia: Code(s): R13.10 - Dysphagia, unspecified Status: Acute Assessment and Plan: Patient passed MBS and okay on regular diet. Slow progression of barium within small and large bowel. Monitored with routine KUB. (4) Type 2 diabetes mellitus: Qualifiers: Diabetes mellitus long term care pharmacist insulin use: without senior care use Diabetes mellitus complication status: with hyperglycemia Qualified Code(s): E11.65 - Type 2 diabetes mellitus with hyperglycemia Code(s): E11.9 - Type 2 diabetes mellitus without complications Status: Chronic Assessment and Plan: Patient was not on diabetic medication prior to hospital admission, and was found to have of blood sugar in the 300s. He endorses taking metformin previously, but stopped taking it as prescribed when his diet and he lost the will to live. Glucose >200. Increase Lantus 33 mg HS and high dose sliding scale insulin TID with meals Accu-Cheks, and hypoglycemic protocol. Hemoglobin A1c 11.5 Resume metformin at discharge. Consistent carb diet (5) Hypertension: Qualifiers: Hypertension type: primary hypertension Qualified Code(s): I10 - Essential (primary) hypertension Code(s): I10 - Essential (primary) hypertension Status: Chronic Assessment and Plan: Blood pressures were reviewed and they have been reasonable in the 140s systolic. Continue antihypertensives and monitor closely. (6) Asthma: Qualifiers: Asthma severity: unspecified severity Asthma persistence: unspecified Asthma complication type: uncomplicated Qualified Code(s): J45.909 - Unspecified asthma, uncomplicated Code(s): J45.909 - Unspecified asthma, uncomplicated Status: Chronic Assessment and Plan: No evidence of acute asthma exacerbation. Continue Advair maintenance inhaler. (7) Toe pain, left: Code(s): M79.675 - Pain in left toe(s) Status: Acute Assessment and Plan: S/p injury to left 4th metatarsal with significant pain with light palpation. Check left foot xray 3V to rule out fracture. Time Spent With Patient Time: 35 minutes time spent with patient, documentation and reviewing medical records. Subjective Date/time seen: 09/13/22 15:47 Interval history: He reports injuring his left 4th toe on his IV pole yesterday. It was swollen, red and he has a cut on the top surface. He reports its intermediate frame tender, but improved. He has been ambulating in the hallway and feels like his breathing is improved and he states his left chest pain is significantly improved. No dizziness or palpitations. Review of Systems Review of Systems: All systems reviewed & are unremarkable except a
[2022-09-13 17:10] LABS: Glucose Point of Care 151 mg/dl (65-105)
[2022-09-13] MEDS: SODIUM CHLORIDE 0.9% IV 1,000 ML 125 ML IV CONT (17:42)
[2022-09-13] MEDS: SACCHAROMYCES BOULARDII 250 MG CAPSULE PO (17:43)
--- NOTE | 2022-09-13 18:27 | PC.NURSE ---
pt has 3 antibiotics scheduled for the same time. RN called pharmacist to see if any could be ran together or if timing could be changed. Per pharmacist, RN can hang vancomycin and levaquin together. Pharmacist to retime zosyn.
[2022-09-13 19:14] LABS: NIL 0.03 IU/mL; Quantiferon TB Plus, 1T NEGATIVE (NEGATIVE); TB1-NIL 0.01 IU/mL; TB2-NIL 0.01 IU/mL
[2022-09-13 20:14] LABS: Mycoplasma IgM Antibody Titer 167 U/mL (<770)
[2022-09-13] MEDS: INSULIN GLARGINE (*BKC) 100 UNITS/ML 33 UNITS SUB-Q (20:27)
[2022-09-13 20:41] LABS: Glucose Point of Care 274 mg/dl (65-105)
[2022-09-14] VITALS (9 sets, daily range): BP systolic 132–154; BP diastolic 75–89; PULSE 71–116; RESP 14–18; TEMP 36.5–36.8; O2SAT 95–100
[2022-09-14 01:27] LABS: Legionella pneumophila Ag Ur Not Detected (Not Detected)
[2022-09-14] MEDS: SODIUM CHLORIDE 0.9% IV 1,000 ML 125 ML IV CONT ×2 (03:47→14:18)
[2022-09-14] MEDS: PIPERACILLIN/TAZOBACTAM SOD 4.5 GM in SODIUM CHLORIDE 0.9% IV 100 ML 200 ML IVPB ×4 (03:48→20:31)
[2022-09-14] MEDS: FLUTICASONE/SALMETEROL 230-21 MCG INHALER 1 PUFF 2 PUFF INHALATION ×2 (07:51→20:36)
[2022-09-14 08:12] LABS: Basophils Percent Auto 0.2 % (0.2-1.2); Hematocrit 42.6 % (42.0-52.0); Hemoglobin 14.1 g/dL (14.0-18.0); Immature Granulocyte Absolute 0.04 K/mm3 (0.00-0.031); Immature Granulocyte Percent A 0.3 % (0-0.5); Lymphocytes Absolute Auto 1.87 K/mm3 (0.9-3.2); Lymphocytes Percent Auto 15.8 % (18.3-44.2); Mean Corpuscular HGB Conc 33.1 g/dl (32-36); Mean Corpuscular Hemoglobin 31.3 pg (26-34); Mean Corpuscular Volume 94.5 fl (80-100); Mean Platelet Volume 9.6 fl (7.4-10.4); Monocytes Absolute Auto 1.6 K/mm3 (0.1-0.6); Monocytes Percent Auto 13.4 % (2.6-8.5); Neutrophils Absolute Auto 8.3 K/mm3 (1.3-6.7); Neutrophils Percent Auto 70.3 % (45.5-73.1); Platelet Count Result 322 k/mm3 (150-375); Red Blood Count 4.51 M/mm3 (4.6-6.20); Red Cell Distribution Width 12.3 % (11.5-14.5); White Blood Count 11.8 K/mm3 (4.5-10.0)
[2022-09-14 08:18] LABS: Potassium 4.1 mmol/L (3.4-5.0)
[2022-09-14 08:30] LABS: Glucose Point of Care 174 mg/dl (65-105)
[2022-09-14 08:42] LABS: Anion Gap 4 mmol/L (8-16); Blood Urea Nitrogen 6 mg/dL (9-20); Calcium 8.9 mg/dL (8.4-10.2); Carbon Dioxide 30 mmol/L (22-30); Chloride 103 mmol/L (98-107); Estimated CRCL calculation 129 ml/min; Estimated Glomerular Filt Rate > 60; Glucose 179 mg/dL (65-110); Sodium 137 mmol/L (137-145)
[2022-09-14] MEDS: MONTELUKAST SODIUM 10 MG TABLET PO (09:29)
[2022-09-14] MEDS: ENOXAPARIN 40 MG/0.4 ML SYRINGE SUB-Q (09:29)
[2022-09-14] MEDS: lisinopriL 10 MG TABLET PO (09:29)
[2022-09-14] MEDS: ASPIRIN 81 MG CHEWABLE TABLET PO (09:29)
[2022-09-14] MEDS: SACCHAROMYCES BOULARDII 250 MG CAPSULE PO ×2 (09:29→16:27)
[2022-09-14 09:40] LABS: Procalcitonin 0.1 ng/mL
--- NOTE | 2022-09-14 12:17 | PM.PNPUL ---
Progress Note: A&P Assessment and Plan (1) Cavitary pneumonia: Code(s): J18.9 - Pneumonia, unspecified organism; J98.4 - Other disorders of lung Status: Acute Assessment and Plan: Patient with a history of asthma on facet center a injection every 8 weeks with a last injection on 08/22/2022. Patient presents with infectious complaint since June 2020 2 with chills, aches, cough, phlegm production and now left-sided pleuritic pain with a CT scan that shows right upper lobe, left upper lobe x2 and a lingular nodular infiltrate. Patient was started on vancomycin, Zosyn and Levaquin on 09/10. 09/11 Currently the patient tells me that he is improved. His phlegm is now resolved, his aches are resolved, the left-sided pleuritic chest pain is 7 of 10. He denies any sore joints or rashes. His white blood cell count is 9.6. He is on room air with saturations 98%. Plan: I will send HIV test, QuantiFERON gold, sputum for AFB and fungus and await blood and sputum cultures. Legionella urine, pneumococcal urine, histo Ag urine, and mycoplasma IgM studies are pending. I will order urine histoplasma antigen. Echocardiogram to assess valvular structures for possible endocarditis. CT abdomen and pelvis with contrast looking for malignancy. patient complained of aspiration on liquids at times and I will order speech therapy consult for modified barium swallow. 09/12 Patient continues to improve. He slept well last night. His left-sided pleuritic chest pain is much improved with 0.5 of 10 at baseline and 2 to 4/10 when he coughs. He has less mucus production and improved color with only 1 brown junk this morning. Room air saturations 96%. White blood cell count 9.3, creatinine 0.4. No evidence of aspiration on his modified barium swallow. HIV test negative. Echocardiogram with EF 60-65%, grade 1 diastolic dysfunction trace mitral regurg and tricuspid regurg with RSVP of 21 and no evidence of vegetations. Plan: Continue vancomycin, Zosyn and Levaquin, day 2. Cultures remain negative. 09/13 Patient continues to improve. He walked in the halls yesterday. His left-sided pleuritic pain is 0.5/10 at rest and 1-2 with deep breathing and coughing. His phlegm is turn from brown to deleon and with a decreased volume. His room air saturations are 98%. White blood cell count is 9.1, creatinine is 0.5. Cultures negative, MRSA nasal swab negative. Plan: Continue vancomycin, Zosyn and Levaquin, day 3. I will check a PA and lateral chest x-ray on 09/14/2022. 09/14 Patient continues to improve. He has no chills, with breathing his left pleuritic chest pain is at 0.5 of 10 Sandra out has minimal pain when he coughs. His sputum volume is decreased and is now yellow. He is afebrile. remains on room air with saturations 96%. White blood cell count is 11.8, creatinine is 0.5. Urine Legionella is negative, mycoplasma IgM is negative, sputum has grown out Destiney tropicalis. chest x-ray was stable cavitary lung disease left mid lung zone. CT of the abdomen/pelvis showed no evidence of malignancy. Sputum AFB smear is positive described as few ( 2+) ease acid-fast bacilli seen using the fluorochrome method. I or ordered a 2nd sputum AFB Plan: Patient has negative QuantiFERON gold study with symptoms that started at of 2021 and now with sputum positive for AFB with cavitary lung disease. Clinically the patient has responded to vancomycin, Zosyn and Levaquin, day 4. I have discussed with the hospitalist and consultation from Infectious Disease specialist is needed. Unfortunately there are no infectious disease specialist at [facility]. Recommend transfer to higher level of care for infectious disease consultation or if available consultation over the phone. Continue current antibiotics and will obtain CT scan of the chest on 09/15/22. Discussed with Hortencia Al. Will follow with you (2) Asthma:
--- NOTE | 2022-09-14 12:38 | P.PNIM_ITS ---
Progress Note: A&P Assessment and Plan (1) Cavitary pneumonia: Code(s): J18.9 - Pneumonia, unspecified organism; J98.4 - Other disorders of lung Status: Acute Assessment and Plan: Patient presents to the ED on 09/10/2022 with lateral chest pain. * Chest x-ray showed necrotizing on in the left upper lobe * CT of the chest showed findings consistent with multifocal pneumonia with multiple solid and cavitary nodules and thick-walled cavitary mass of the left upper lobe measuring 6.1 x 4.9 cm.? * Started on broad-spectrum antibiotics (levofloxacin, vancomycin, and piperacillin/tazobactam), first dose 09/11/22; Day 4 of antibiotics. * Sputum culture mixed alban * Urinary antigens- legionella negative, mycoplasma 167, pneumococcal pending, histoplasmosis pending. * Dr. Gomez, pulmonology, has been consulted and appreciate his recommendations. * Echo without evidence of pericarditis, pericardial effusion and endocarditis. * QFT gold negative. AFB sputum with 2+ acid-fast bacilli in smear, culture pending. Repeat AFB x2 with morning sputum. Discussed results with Dr. Gomez, Pulmonology and [facility] U ID Dr. Morales regarding results who recommended airborne isolation. Given that the patient is improving clinically await AFB culture. * HIV negative * Procalcitonin 0.1 * Elevated CRP at 3.3 on admission and 3.0 on 09/14 * Plan to check CT abd/pelvis rule out malignancy negative for malignancy * chest xray 09/14/22 stable cavitary lesion with surround consolidation left upper lobe. (2) Multifocal pneumonia: Code(s): J18.9 - Pneumonia, unspecified organism Status: Acute Assessment and Plan: As above. Day (3) Dysphagia: Code(s): R13.10 - Dysphagia, unspecified Status: Ruled-out Assessment and Plan: Patient passed MBS and okay on regular diet. No dysphagia. (4) Type 2 diabetes mellitus: Qualifiers: Diabetes mellitus complication status: with hyperglycemia Diabetes mellitus senior care insulin use: without senior care use Qualified Code(s): E11.65 - Type 2 diabetes mellitus with hyperglycemia Code(s): E11.9 - Type 2 diabetes mellitus without complications Status: Chronic Assessment and Plan: Patient was not on diabetic medication prior to hospital admission, and was found to have of blood sugar in the 300s. He endorses taking metformin previously, but stopped taking it as prescribed when his diet and he lost the will to live. * Lantus 33 mg HS; am glucose 174 * meal time glucose- >200 lunch and bedtime. Give 5 units with breakfast and supper. Continue high dose sliding scale insulin TID with meals * Accu-Cheks, and hypoglycemic protocol. * Hemoglobin A1c 11.5 * Continue metformin at discharge. * Consistent carb diet (5) Hypertension: Qualifiers: Hypertension type: primary hypertension Qualified Code(s): I10 - Essential (primary) hypertension Code(s): I10 - Essential (primary) hypertension Status: Chronic Assessment and Plan: Blood pressures were reviewed and they have been reasonable in the 140s systolic. * Continue antihypertensives and monitor closely. (6) Asthma: Qualifiers: Asthma complication type: uncomplicated Asthma persistence: unspecified Asthma severity: unspecified severity Qualified Code(s): J45.909 - Unspecified asthma, uncomplicated Code(s): J45.909 - Unspecified asthma, uncomplicated Status: Chronic Assessment and Plan: No evidence of acute asthma exacerbation. Patient takes Fesenra (anti IL-5 receptor) outpatient.
--- NOTE | 2022-09-14 12:38 | PM.IMPN ---
Progress Note: A&P Assessment and Plan (1) Cavitary pneumonia: Code(s): J18.9 - Pneumonia, unspecified organism; J98.4 - Other disorders of lung Status: Acute Assessment and Plan: Patient presents to the ED on 09/10/2022 with lateral chest pain. Chest x-ray showed necrotizing on in the left upper lobe CT of the chest showed findings consistent with multifocal pneumonia with multiple solid and cavitary nodules and thick-walled cavitary mass of the left upper lobe measuring 6.1 x 4.9 cm.? Started on broad-spectrum antibiotics (levofloxacin, vancomycin, and piperacillin/tazobactam), first dose 09/11/22; Day 4 of antibiotics. Sputum culture mixed alban Urinary antigens- legionella negative, mycoplasma 167, pneumococcal pending, histoplasmosis pending. Dr. Gomez, pulmonology, has been consulted and appreciate his recommendations. Echo without evidence of pericarditis, pericardial effusion and endocarditis. QFT gold negative. AFB sputum with 2+ acid-fast bacilli in smear, culture pending. Repeat AFB x2 with morning sputum. Discussed results with Dr. Gomez, Pulmonology and [facility] U ID Dr. Morales regarding results who recommended airborne isolation. Given that the patient is improving clinically await AFB culture. HIV negative Procalcitonin 0.1 Elevated CRP at 3.3 on admission and 3.0 on 09/[address] abd/pelvis rule out malignancy negative for malignancy chest xray 09/14/22 stable cavitary lesion with surround consolidation left upper lobe. (2) Multifocal pneumonia: Code(s): J18.9 - Pneumonia, unspecified organism Status: Acute Assessment and Plan: As above. Day (3) Dysphagia: Code(s): R13.10 - Dysphagia, unspecified Status: Ruled-out Assessment and Plan: Patient passed MBS and okay on regular diet. No dysphagia. 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 He endorses taking metformin previously, but stopped taking it as prescribed when his diet and he lost the will to live. Lantus 33 mg HS; am glucose 174 meal time glucose- >200 lunch and bedtime. Give 5 units with breakfast and supper. Continue high dose sliding scale insulin TID with meals Accu-Cheks, and hypoglycemic protocol. Hemoglobin A1c 11.5 Continue metformin at discharge. Consistent carb diet (5) Hypertension: Qualifiers: Hypertension type: primary hypertension Qualified Code(s): I10 - Essential (primary) hypertension Code(s): I10 - Essential (primary) hypertension Status: Chronic Assessment and Plan: Blood pressures were reviewed and they have been reasonable in the 140s systolic. Continue antihypertensives and monitor closely. (6) Asthma: Qualifiers: Asthma complication type: uncomplicated Asthma persistence: unspecified Asthma severity: unspecified severity Qualified Code(s): J45.909 - Unspecified asthma, uncomplicated Code(s): J45.909 - Unspecified asthma, uncomplicated Status: Chronic Assessment and Plan: No evidence of acute asthma exacerbation. Patient takes Fesenra (anti IL-5 receptor) outpatient. Continue Advair maintenance inhaler. (7) Toe pain, left: Code(s): M79.675 - Pain in left toe(s) Status: Acute Assessment and Plan: S/p injury to left 4th metatarsal with significant pain with light palpation. left foot xray 3V negative for fracture. Time Spent With Patient Time: >60 minutes time spent for patient assessment and educationtayler
[2022-09-14 12:54] LABS: Glucose Point of Care 235 mg/dl (65-105)
[2022-09-14] MEDS: INSULIN ASPART (*BKC) 100 UNITS/ML SUB-Q (13:20)
--- NOTE | 2022-09-14 15:42 | PC.NURSE ---
pt transferring to 3 med/surg room 309 to be in an airborne isolation room. report given to jay. hospitalist notified of this
[2022-09-14 16:45] LABS: Glucose Point of Care 165 mg/dl (65-105)
--- NOTE | 2022-09-14 16:46 | PC.NURSE ---
Received patient from 3 medical into room 309 at 16:20. Pt. oriented to unit's policies and procedures. Report received from Destiny AGOSTO.
[2022-09-14] MEDS: INSULIN GLARGINE (*BKC) 100 UNITS/ML 33 UNITS SUB-Q (20:32)
[2022-09-14 21:21] LABS: Glucose Point of Care 256 mg/dl (65-105)
[2022-09-14 21:31] LABS: Pneumococcal Antigen Urine Not Detected (Not Detected)
[2022-09-15] VITALS: PULSE 90
[2022-09-15] MEDS: PIPERACILLIN/TAZOBACTAM SOD 4.5 GM in SODIUM CHLORIDE 0.9% IV 100 ML 200 ML IVPB ×2 (03:41→09:00)
[2022-09-15 04:00] VITALS: PULSE 86
[2022-09-15 05:43] VITALS: BP 117/77; PULSE 74; RESP 16; TEMP 37.1; O2SAT 94
[2022-09-15 07:10] LABS: Basophils Percent Auto 0.1 % (0.2-1.2); Hematocrit 37.8 % (42.0-52.0); Hemoglobin 12.9 g/dL (14.0-18.0); Immature Granulocyte Absolute 0.02 K/mm3 (0.00-0.031); Immature Granulocyte Percent A 0.2 % (0-0.5); Lymphocytes Absolute Auto 1.84 K/mm3 (0.9-3.2); Lymphocytes Percent Auto 18.9 % (18.3-44.2); Mean Corpuscular HGB Conc 34.1 g/dl (32-36); Mean Corpuscular Hemoglobin 31.2 pg (26-34); Mean Corpuscular Volume 91.5 fl (80-100); Monocytes Absolute Auto 1.6 K/mm3 (0.1-0.6); Monocytes Percent Auto 16.8 % (2.6-8.5); Neutrophils Absolute Auto 6.2 K/mm3 (1.3-6.7); Platelet Count Result 325 k/mm3 (150-375); Red Blood Count 4.13 M/mm3 (4.6-6.20); Red Cell Distribution Width 12.2 % (11.5-14.5); White Blood Count 9.7 K/mm3 (4.5-10.0)
[2022-09-15 07:16] LABS: Anion Gap 4 mmol/L (8-16); Blood Urea Nitrogen 6 mg/dL (9-20); Calcium 8.8 mg/dL (8.4-10.2); Carbon Dioxide 31 mmol/L (22-30); Chloride 99 mmol/L (98-107); Estimated CRCL calculation 96 ml/min; Estimated Glomerular Filt Rate > 60; Glucose 214 mg/dL (65-110); Sodium 134 mmol/L (137-145)
--- NOTE | 2022-09-15 07:44 | P.PNIM_ITS ---
Progress Note: A&P Assessment and Plan (1) Cavitary pneumonia: Code(s): J18.9 - Pneumonia, unspecified organism; J98.4 - Other disorders of lung Status: Acute Assessment and Plan: Patient presents to the ED on 09/10/2022 with lateral chest pain. * Chest x-ray showed necrotizing on in the left upper lobe * CT of the chest showed findings consistent with multifocal pneumonia with multiple solid and cavitary nodules and thick-walled cavitary mass of the left upper lobe measuring 6.1 x 4.9 cm.? * Started on broad-spectrum antibiotics (levofloxacin, vancomycin, and piperacillin/tazobactam), first dose 09/11/22; Day 4 of antibiotics. * Sputum culture mixed alban * Urinary antigens- legionella negative, mycoplasma 167, pneumococcal pending, histoplasmosis pending. * Dr. Gomez, pulmonology, has been consulted and appreciate his recommendations. * Echo without evidence of pericarditis, pericardial effusion and endocarditis. * QFT gold negative. AFB sputum with 2+ acid-fast bacilli in smear, culture pending. Repeat AFB x2 with morning sputum. Discussed results with Dr. Gomez, Pulmonology and [facility] U ID Dr. Morales regarding results who recommended airborne isolation. Given that the patient is improving clinically await AFB culture. * HIV negative * Procalcitonin 0.1 * Elevated CRP at 3.3 on admission and 3.0 on 09/14 * Plan to check CT abd/pelvis rule out malignancy negative for malignancy * chest xray 09/14/22 stable cavitary lesion with surround consolidation left upper lobe. (2) Multifocal pneumonia: Code(s): J18.9 - Pneumonia, unspecified organism Status: Acute Assessment and Plan: As above. Day (3) Dysphagia: Code(s): R13.10 - Dysphagia, unspecified Status: Ruled-out Assessment and Plan: Patient passed MBS and okay on regular diet. No dysphagia. 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 He endorses taking metformin previously, but stopped taking it as prescribed when his diet and he lost the will to live. * Lantus 33 mg HS; am glucose 174 * meal time glucose- >200 lunch and bedtime. Give 5 units with breakfast and supper. Continue high dose sliding scale insulin TID with meals * Accu-Cheks, and hypoglycemic protocol. * Hemoglobin A1c 11.5 * Continue metformin at discharge. * Consistent carb diet (5) Hypertension: Qualifiers: Hypertension type: primary hypertension Qualified Code(s): I10 - Essential (primary) hypertension Code(s): I10 - Essential (primary) hypertension Status: Chronic Assessment and Plan: Blood pressures were reviewed and they have been reasonable in the 140s systolic. * Continue antihypertensives and monitor closely. (6) Asthma: Qualifiers: Asthma severity: unspecified severity Asthma persistence: unspecified Asthma complication type: uncomplicated Qualified Code(s): J45.909 - Unspecified asthma, uncomplicated Code(s): J45.909 - Unspecified asthma, uncomplicated Status: Chronic Assessment and Plan: No evidence of acute asthma exacerbation. Patient takes Fesenra (anti IL-5 receptor) outpatient.
--- NOTE | 2022-09-15 07:44 | PM.IMPN ---
Progress Note: A&P Assessment and Plan (1) Cavitary pneumonia: Code(s): J18.9 - Pneumonia, unspecified organism; J98.4 - Other disorders of lung Status: Acute Assessment and Plan: Patient presents to the ED on 09/10/2022 with lateral chest pain. Chest x-ray showed necrotizing on in the left upper lobe CT of the chest showed findings consistent with multifocal pneumonia with multiple solid and cavitary nodules and thick-walled cavitary mass of the left upper lobe measuring 6.1 x 4.9 cm.? Started on broad-spectrum antibiotics (levofloxacin, vancomycin, and piperacillin/tazobactam), first dose 09/11/22; Day 4 of antibiotics. Sputum culture mixed alban Urinary antigens- legionella negative, mycoplasma 167, pneumococcal pending, histoplasmosis pending. Dr. Gomez, pulmonology, has been consulted and appreciate his recommendations. Echo without evidence of pericarditis, pericardial effusion and endocarditis. QFT gold negative. AFB sputum with 2+ acid-fast bacilli in smear, culture pending. Repeat AFB x2 with morning sputum. Discussed results with Dr. Gomez, Pulmonology and [facility] ID Dr. Morales regarding results who recommended airborne isolation. Given that the patient is improving clinically await AFB culture. HIV negative Procalcitonin 0.1 Elevated CRP at 3.3 on admission and 3.0 on 09/[address] abd/pelvis rule out malignancy negative for malignancy chest xray 09/14/22 stable cavitary lesion with surround consolidation left upper lobe. (2) Multifocal pneumonia: Code(s): J18.9 - Pneumonia, unspecified organism Status: Acute Assessment and Plan: As above. Day (3) Dysphagia: Code(s): R13.10 - Dysphagia, unspecified Status: Ruled-out Assessment and Plan: Patient passed MBS and okay on regular diet. No dysphagia. 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 He endorses taking metformin previously, but stopped taking it as prescribed when his diet and he lost the will to live. Lantus 33 mg HS; am glucose 174 meal time glucose- >200 lunch and bedtime. Give 5 units with breakfast and supper. Continue high dose sliding scale insulin TID with meals Accu-Cheks, and hypoglycemic protocol. Hemoglobin A1c 11.5 Continue metformin at discharge. Consistent carb diet (5) Hypertension: Qualifiers: Hypertension type: primary hypertension Qualified Code(s): I10 - Essential (primary) hypertension Code(s): I10 - Essential (primary) hypertension Status: Chronic Assessment and Plan: Blood pressures were reviewed and they have been reasonable in the 140s systolic. Continue antihypertensives and monitor closely. (6) Asthma: Qualifiers: Asthma severity: unspecified severity Asthma persistence: unspecified Asthma complication type: uncomplicated Qualified Code(s): J45.909 - Unspecified asthma, uncomplicated Code(s): J45.909 - Unspecified asthma, uncomplicated Status: Chronic Assessment and Plan: No evidence of acute asthma exacerbation. Patient takes Fesenra (anti IL-5 receptor) outpatient. Continue Advair maintenance inhaler. (7) Toe pain, left: Code(s): M79.675 - Pain in left toe(s) Status: Acute Assessment and Plan: S/p injury to left 4th metatarsal with significant pain with light palpation. left foot xray 3V negative for fracture. Subjective Date/time seen: 09/15/22 07:44 Review of Systems Review of Systems: All s
[2022-09-15 08:03] LABS: Glucose Point of Care 182 mg/dl (65-105)
[2022-09-15] MEDS: INSULIN ASPART (*BKC) 100 UNITS/ML SUB-Q ×2 (08:59→12:30)
[2022-09-15] MEDS: SACCHAROMYCES BOULARDII 250 MG CAPSULE PO (09:01)
[2022-09-15] MEDS: MONTELUKAST SODIUM 10 MG TABLET PO (09:01)
[2022-09-15] MEDS: lisinopriL 10 MG TABLET PO (09:01)
[2022-09-15] MEDS: ENOXAPARIN 40 MG/0.4 ML SYRINGE SUB-Q (09:01)
[2022-09-15] MEDS: ASPIRIN 81 MG CHEWABLE TABLET PO (09:01)
[2022-09-15] MEDS: FLUTICASONE/SALMETEROL 230-21 MCG INHALER 1 PUFF 2 PUFF INHALATION (09:05)
--- NOTE | 2022-09-15 09:59 | PM.PNPUL ---
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 Patient presents with infectious complaint since June 2020 2 with chills, aches, cough, phlegm production and now left-sided pleuritic pain with a CT scan that shows right upper lobe, left upper lobe x2 and a lingular nodular infiltrate. Patient was started on vancomycin, Zosyn and Levaquin on 09/10. 09/11 Currently the patient tells me that he is improved. His phlegm is now resolved, his aches are resolved, the left-sided pleuritic chest pain is 7 of 10. He denies any sore joints or rashes. His white blood cell count is 9.6. He is on room air with saturations 98%. Plan: I will send HIV test, QuantiFERON gold, sputum for AFB and fungus and await blood and sputum cultures. Legionella urine, pneumococcal urine, histo Ag urine, and mycoplasma IgM studies are pending. I will order urine histoplasma antigen. Echocardiogram to assess valvular structures for possible endocarditis. CT abdomen and pelvis with contrast looking for malignancy. patient complained of aspiration on liquids at times and I will order speech therapy consult for modified barium swallow. 09/12 Patient continues to improve. He slept well last night. His left-sided pleuritic chest pain is much improved with 0.5 of 10 at baseline and 2 to 4/10 when he coughs. He has less mucus production and improved color with only 1 brown junk this morning. Room air saturations 96%. White blood cell count 9.3, creatinine 0.4. No evidence of aspiration on his modified barium swallow. HIV test negative. Echocardiogram with EF 60-65%, grade 1 diastolic dysfunction trace mitral regurg and tricuspid regurg with RSVP of 21 and no evidence of vegetations. Plan: Continue vancomycin, Zosyn and Levaquin, day 2. Cultures remain negative. 09/13 Patient continues to improve. He walked in the halls yesterday. His left-sided pleuritic pain is 0.5/10 at rest and 1-2 with deep breathing and coughing. His phlegm is turn from brown to deleon and with a decreased volume. His room air saturations are 98%. White blood cell count is 9.1, creatinine is 0.5. Cultures negative, MRSA nasal swab negative. Plan: Continue vancomycin, Zosyn and Levaquin, day 3. I will check a PA and lateral chest x-ray on 09/14/2022. 09/14 Patient continues to improve. He has no chills, with breathing his left pleuritic chest pain is at 0.5 of 10 Sandra out has minimal pain when he coughs. His sputum volume is decreased and is now yellow. He is afebrile. remains on room air with saturations 96%. White blood cell count is 11.8, creatinine is 0.5. Urine Legionella is negative, mycoplasma IgM is negative, sputum has grown out Destiney tropicalis. chest x-ray was stable cavitary lung disease left mid lung zone. CT of the abdomen/pelvis showed no evidence of malignancy. Sputum AFB smear is positive described as few ( 2+) ease acid-fast bacilli seen using the fluorochrome method. I or ordered a 2nd sputum AFB Plan: Patient has negative QuantiFERON gold study with symptoms that started at of 2021 and now with sputum positive for AFB with cavitary lung disease. Clinically the patient has responded to vancomycin, Zosyn and Levaquin, day 4. I have discussed with the hospitalist and consultation from Infectious Disease specialist is needed. Unfortunately there are no infectious disease specialist at [facility]. Recommend transfer to higher level of care for infectious disease consultation or if available consultation over the phone. Continue current antibiotics and will obtain CT scan of the chest on 09/15/22. Hospitalist spoke to [facility] Infectious Disease fellow, Dr. Singer, and their recommendation was to
[2022-09-15 11:38] LABS: Glucose Point of Care 259 mg/dl (65-105)
--- NOTE | 2022-09-15 13:40 | P.DS_ITS ---
DS: Admitting Diagnosis Discharge Date 09/15/2022 Admitting Diagnosis Multifocal pneumonia ?Dysphagia, unspecified ?Type 2 diabetes mellitus without complications ?Essential (primary) hypertension ?Asthma, chronic persistent? DS: Discharge Diagnosis Discharge Diagnosis (1) Cavitary pneumonia: Code(s): J18.9 - Pneumonia, unspecified organism; J98.4 - Other disorders of lung Status: Acute Assessment and Plan: Patient presents to the ED on 09/10/2022 with lateral chest pain. * Chest x-ray showed necrotizing lesion in the left upper lobe * CT of the chest showed findings consistent with multifocal pneumonia with multiple solid and cavitary nodules and thick-walled cavitary mass of the left upper lobe measuring 6.1 x 4.9 cm.? * Started on broad-spectrum antibiotics (levofloxacin, vancomycin, and piperacillin/tazobactam), first dose 09/11/22; * Sputum culture showed mixed alban * Urinary antigens- legionella negative, mycoplasma 167, pneumococcal pending, histoplasmosis pending, MRSA nares negative. * Pulmonology consulted? and appreciate his recommendations. * Transthoracic echocardiogram obtained and without evidence of pericarditis, pericardial effusion and endocarditis. * QFT gold negative. AFB sputum with 2+ acid-fast bacilli in smear, culture pending. Repeat AFB x2 with morning sputum, both later found to be +AFB smear. Discussed results with Dr. Gomez, Pulmonology and [facility] ID Dr. Singer regarding results who recommended airborne isolation. Given that the patient is improving clinically await AFB culture before initiating treatment. . * HIV negative * Procalcitonin 0.1 * Elevated CRP at 3.3 on admission and 3.0 on 09/14 * CT abd/pelvis negative for malignancy * chest xray 09/14/22 stable cavitary lesion with surround consolidation left upper lobe. * Discharged on 9 days Augmentin 875/125 mg PO BID and Levaquin 750 mg PO daily. * Counseled on isolation. Health department contacted and will follow patient. [facility] ID contacted and will see patient pending culture results. Information sent to office. (2) Acid fast bacillus: Code(s): A31.9 - Mycobacterial infection, unspecified Status: Acute Assessment and Plan: As above. Patient to quarantine and Health Department following. (3) Multifocal pneumonia: Code(s): J18.9 - Pneumonia, unspecified organism Status: Acute Assessment and Plan: As above. Contributing to pleuritic chest pain. (4) Dysphagia: Code(s): R13.10 - Dysphagia, unspecified Status: Ruled-out Assessment and Plan: Patient passed MBS without s/s aspiration and okayed for regular diet. (5) Type 2 diabetes mellitus: Qualifiers: Diabetes mellitus complication status: with hyperglycemia Diabetes mellitus chcf insulin use: without chcf use Qualified Code(s): E11.65 - Type 2 diabetes mellitus with hyperglycemia Code(s): E11.9 - Type 2 diabetes mellitus without complications Status: Chronic Assessment and Plan: Patient was not on diabetic medication prior to hospital admission as he stopped taking them after his . blood sugar in the 300s upon admission. * Given Lantus 33 mg HS; and fasting glucose <180. * meal time glucose- >200 lunch and bedtime. Given 5 units with breakfast and supper. Continued high dose sliding scale insulin TID with meals * Accu-Cheks, and hypoglycemic protocol. * Hemoglobin A1c 11.5 * Resumed metformin 1000 mg PO BID at discharge. * Consistent carb diet * Patient counseled and return demonstration on ins
--- NOTE | 2022-09-15 13:40 | PM.DS ---
DS: Admitting Diagnosis Discharge Date 09/15/2022 Admitting Diagnosis Multifocal pneumonia ?Dysphagia, unspecified ?Type 2 diabetes mellitus without complications ?Essential (primary) hypertension ?Asthma, chronic persistent? DS: Discharge Diagnosis Discharge Diagnosis (1) Cavitary pneumonia: Code(s): J18.9 - Pneumonia, unspecified organism; J98.4 - Other disorders of lung Status: Acute Assessment and Plan: Patient presents to the ED on 09/10/2022 with lateral chest pain. Chest x-ray showed necrotizing lesion in the left upper lobe CT of the chest showed findings consistent with multifocal pneumonia with multiple solid and cavitary nodules and thick-walled cavitary mass of the left upper lobe measuring 6.1 x 4.9 cm.? Started on broad-spectrum antibiotics (levofloxacin, vancomycin, and piperacillin/tazobactam), first dose 09/11/22; Sputum culture showed mixed alban Urinary antigens- legionella negative, mycoplasma 167, pneumococcal pending, histoplasmosis pending, MRSA nares negative. Pulmonology consulted? and appreciate his recommendations. Transthoracic echocardiogram obtained and without evidence of pericarditis, pericardial effusion and endocarditis. QFT gold negative. AFB sputum with 2+ acid-fast bacilli in smear, culture pending. Repeat AFB x2 with morning sputum, both later found to be +AFB smear. Discussed results with Dr. Gomez, Pulmonology and [facility] ID Dr. Singer regarding results who recommended airborne isolation. Given that the patient is improving clinically await AFB culture before initiating treatment. . HIV negative Procalcitonin 0.1 Elevated CRP at 3.3 on admission and 3.0 on 09/14 CT abd/pelvis negative for malignancy chest xray 09/14/22 stable cavitary lesion with surround consolidation left upper lobe. Discharged on 9 days Augmentin 875/125 mg PO BID and Levaquin 750 mg PO daily. Counseled on isolation. Health department contacted and will follow patient. [facility] ID contacted and will see patient pending culture results. Information sent to office. (2) Acid fast bacillus: Code(s): A31.9 - Mycobacterial infection, unspecified Status: Acute Assessment and Plan: As above. Patient to quarantine and Health Department following. (3) Multifocal pneumonia: Code(s): J18.9 - Pneumonia, unspecified organism Status: Acute Assessment and Plan: As above. Contributing to pleuritic chest pain. (4) Dysphagia: Code(s): R13.10 - Dysphagia, unspecified Status: Ruled-out Assessment and Plan: Patient passed MBS without s/s aspiration and okayed for regular diet. 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 blood sugar in the 300s upon admission. Given Lantus 33 mg HS; and fasting glucose <180. meal time glucose- >200 lunch and bedtime. Given 5 units with breakfast and supper. Continued high dose sliding scale insulin TID with meals Accu-Cheks, and hypoglycemic protocol. Hemoglobin A1c 11.5 Resumed metformin 1000 mg PO BID at discharge. Consistent carb diet Patient counseled and return demonstration on insulin administration, blood sugar monitoring 4 times daily and diet. (6) Hypertension: Qualifiers: Hypertension type: primary hypertension Qualified Code(s): I10 - Essential (primary) hypertension Code(s): I10 - Essential (primary) hypertension Status: Chronic Assessment and Plan: Blood pressures were reviewed and they have been reasonable in the 14
== END 2022-09-15 15:08 | disposition home or self-care (01) | DRG 194 ==
LOC: ANHED 14:17 → ANH3MED 18:33 → ANH3MEDSUR 09-14 18:57 → ANH3MED 09-19 09:12 → ANH3MEDSUR 09-19 09:12
PROVIDERS: Emergency Medicine; Internal Medicine Critical Care Medicine; Internal Medicine Pulmonary Disease; Physician Assistant; Admitting Provider Hospitalist; Emergency Provider Emergency Medicine; PCP Internal Medicine; Visit Provider Nurse Practitioner Family
DX: J18.9 Pneumonia, unspecified organism (principal); A31.9 Mycobacterial infection, unspecified; B37.9 Candidiasis, unspecified; E11.65 Type 2 diabetes mellitus with hyperglycemia; E78.5 Hyperlipidemia, unspecified; I10 Essential (primary) hypertension; J45.909 Unspecified asthma, uncomplicated; M79.675 Pain in left toe(s); R13.10 Dysphagia, unspecified; Z20.822 Contact with and (suspected) exposure to COVID-19; Z79.84 Long term (current) use of oral hypoglycemic drugs; Z28.21 Immunization not carried out because of patient refusal; Z91.14 Patient's other noncompliance with medication regimen
CPT/HCPCS: 36415; 71046; 71250; 71260; 73630; 74018; 74177; 80048; 80053; 80202; 82948; 83036; 83605; 83615; 83690; 83735; 84145; 84484; 85025; 85027; 85610; 85652; 85730; 86140; 86480; 86703; 86738; 87015; 87040; 87070; 87081; 87102; 87106; 87116; 87149; 87205; 87206; 87385; 87449; 87899; 92611; 93005; 93306; 94640; 96374; 99285; A9270; G0432; J1650; J1815; J1885; J1956; J2543; J3370; J7030; Q9967; U0003; U0005

== ENCOUNTER 2022-11-09 07:54 | Outpatient (CLI) | payer BC, SELFPAY | END 2022-11-09 07:55 | disposition home or self-care (01) | LOC: ANHAUDASC 07:57 | PROVIDERS: PCP Internal Medicine | DX: A31.0 Pulmonary mycobacterial infection (principal); H90.3 Sensorineural hearing loss, bilateral | CPT/HCPCS: 92557; 92567 ==

== ENCOUNTER 2022-11-09 08:28 | Outpatient (CLI) | payer BC, SELFPAY ==
[2022-11-09 12:48] LABS: Basophils Absolute Auto 0.1 K/mm3 (0.0-0.1); Basophils Percent Auto 0.5 % (0.2-1.2); Hematocrit 42.6 % (42.0-52.0); Hemoglobin 13.9 g/dL (14.0-18.0); Immature Granulocyte Absolute 0.02 K/mm3 (0.00-0.031); Immature Granulocyte Percent A 0.2 % (0-0.5); Lymphocytes Percent Auto 27.1 % (18.3-44.2); Mean Corpuscular HGB Conc 32.6 g/dl (32-36); Mean Corpuscular Hemoglobin 31.4 pg (26-34); Mean Corpuscular Volume 96.2 fl (80-100); Mean Platelet Volume 11.4 fl (7.4-10.4); Monocytes Absolute Auto 1.1 K/mm3 (0.1-0.6); Neutrophils Absolute Auto 5.6 K/mm3 (1.3-6.7); Neutrophils Percent Auto 60.2 % (45.5-73.1); Platelet Count Result 289 k/mm3 (150-375); Red Blood Count 4.43 M/mm3 (4.6-6.20); Red Cell Distribution Width 13.5 % (11.5-14.5); White Blood Count 9.2 K/mm3 (4.5-10.0)
[2022-11-09 12:58] LABS: INR 1.1; Prothrombin Time 14.4 Seconds (11.1-14.7)
== END 2022-11-09 08:29 | disposition home or self-care (01) ==
LOC: ANHGOSHLAB 08:30
PROVIDERS: PCP Internal Medicine
DX: A31.0 Pulmonary mycobacterial infection (principal); Z45.2 Encounter for adjustment and management of vascular access device
CPT/HCPCS: 36415; 85025; 85610

== ENCOUNTER 2023-01-08 13:33 | Outpatient (CLI) | payer BC, SELFPAY | END 2023-01-08 13:34 | disposition home or self-care (01) | LOC: ANHAUDIO 13:33 | PROVIDERS: PCP Internal Medicine | DX: A31.0 Pulmonary mycobacterial infection (principal); Z79.899 Other long term (current) drug therapy; H90.3 Sensorineural hearing loss, bilateral | CPT/HCPCS: 92557; 92567 ==